=== PATIENT | female | born 1960 | race Caucasian/White ===

== ENCOUNTER 2022-04-06 16:28 | Emergency (ER) | payer OTHER ==
--- OUTSIDE RECORDS SUMMARY | 2022-04-06 16:33 | XMS REPORT | Continuity of Care Document ---
:1960 Author Organization [facility] t Address [address] [place] [address] Care Team Providers Name Role Phone JULI DURÁN Primary Care Physician Unavailable Juli Durán Attending Clinician Unavailable Dominique Kaur MD Attending Clinician DOMINIQUE KAUR Attending Clinician Unavailable DOMINIQUE KAUR Admitting Clinician Unavailable Payers Payer Name Policy Type Policy Number Effective Date Expiration Date S terry [place] [address] [id number] [facility] Spirit - C [facility] Problems Condition Condition Condition Status Onset Resolution Last Treating Co mments Source Name Details Category Date Date Treatment Clinician Date [id number] Liver cyst Problem Com mon [facility] [id number] Fatty Problem Common liver [facility] 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 [id number] Memory Problem Common loss [facility] [id number] Chills Problem Common Spirit - [facility] [id number] Weight Problem Common loss [facility] [id number] Gastroesop Problem Co mmon hageal Spirit reflux - [facility] disease [facility] esophagiti Medica l s without Center hemorrhage [id number] Iron Problem Common deficiency Spirit anemia - [facility]I secondary [facility] inadequate Medica l dietary Center iron intake [id number] Possible Problem Comm on exposure Spirit to STD - [facility] No known No known Disease Unive rs active active ity of problems problems [facility] Allergies, Adverse Reactions, Alerts Allergy Allergy Status Severity Reaction(s) Onset Inactive Treating Comm ents Source Name Type Date Date Clinician NO KNOWN Drug Active Univers ALLERGIE Class ity of S [facility] Social History Social Habit Start Date Stop Date Quantity Comments Source History of Common Spirit - Tobacco Use [facility] Sex Assigned At Common Sp sonny - [facility] History SDOH University o f Alcohol Frequency [place] [facility] History SDOH University o f Alcohol Std [place] [facility] History SDOH University o f Alcohol Binge [place] [facility] Exposure to Not sure University of SARS-CoV-2 [facility] (event) Branch Alcohol intake 2021-06-05 2021-06-05 Current drinker Unive rsity of 00:00:00 00:00:00 of alcohol [facility] (finding) Branch Tobacco use and 2017-03-25 2017-03-25 Never used Universit y of exposure 00:00:00 00:00:00 [facility] Alcohol Comment 2017-03-25 2017-03-25 Social Drinker Unive rsity of 00:00:00 00:00:00 [facility] Smoking Status Start Date Stop Date Source Never Smoker [facility] Medications Ordered Filled Start Stop Current Ordering Indication Dosage Frequency Signature Comments Components Source Medication Medication Date Date Medication? Clinician (SIG) Name Name Omeprazole Omeprazole No QD Omeprazole 40 MG 40 MG 3-31 40 MG 00:00: 00 Omeprazole Omeprazole No QD Omeprazole 40 MG 40 MG 3-31 40 MG 00:00: 00 Omeprazole Omeprazole 0 No QD Omeprazole 40 MG 40 MG 3-31 40 MG 00:00: 00 Omeprazole Omeprazole No QD Omeprazole 40 MG 40 MG 3-31 40 MG 00:00: 00 Omeprazole Omeprazole 0 No QD Omeprazole 40 MG 40 MG 3-31 40 MG 00:00: 00 Omeprazole Omeprazole 0 No QD Omeprazole 40 MG 40 MG 3-31 40 MG 00:00: 00 Omeprazole Omeprazole 0 No QD Omeprazole 40 MG 40 MG 3-31 40 MG 00:00: 00 aspirin Yes 81mg 81 mg, Univers chewable 2-23 Oral, ity of tablet 81 15:00: DAILY, [place] mg 00 First dose Medical on Fri Branch 06/06/21 at 0900, Until Discontinu ed, Routine NaCl 0.9% Yes 1000mL at 999 Univ ers (NS) IV 2-23 mL/hr, ity of infusion 05:30: Intravenou [place] as 1,000 mL 00 s, Medical CONTINUOUS Branch , Starting on Fri06/05/21 at 2330, Until Discontinu ed, Routine NaCl 0.9% Yes 1000mL at 999 Univ ers (NS) IV 2-23 mL/hr, ity of infusion 04:30: Intravenou [place] as 1,000 mL 00 s, Medical CONTINUOUS Branch , Starting on Fri06/05/21 at 2230, Until Discontinu ed, Routine iopamidol 2021- No [id number] 100mL 100 mL, Univers (ISOVUE - 02-23 Intravenou ity o f 370-500 mL) 02:30: 02:34 s, ONCE, 1 [place] injection 00 :00 dose, On Medica l 100 mL Fri Branch 06/05/21 at 2030, Routine NaCl 0.9% Yes 5mL 5 mL, Slow Un tod (NS) 2-23 IV Push, ity of injection 5 02:25: PRN - [place] mL 36 INSTRUCTIO Medical NS, Branch Starting on Fri06/05/21 at 2024, Until Discontinu ed, 10 mL Fluticasone Fluticasone Yes Juli 1 spray in Common Propionate Propionate 5-15 [place] each Sp sonny 00:00: nostril - [facility] 00 [facility] Fluticasone Fluticasone No 1{spray QD Fluticason Propionate Propionate 5-15 _in_eac e 50 MCG/ACT 50 MCG/ACT 00:00: h_nostr Propionate 00 il} 50 MCG/ACT Fluticasone Fluticasone 2019-0 No 1{spray QD Fluticason Propionate Propionate 5-15 _in_eac e 50 MCG/ACT 50 MCG/ACT 00:00: h_nostr Propionate 00 il} 50 MCG/ACT Fluticasone Fluticasone 2019-0 No 1{spray QD Fluticason Propionate Propionate 5-15 _in_eac e 50 MCG/ACT 50 MCG/ACT 00:00: h_nostr Propionate 00 il} 50 MCG/ACT Fluticasone Fluticasone 2019-0 No 1{spray QD Fluticason Propionate Propionate 5-15 _in_eac e 50 MCG/ACT 50 MCG/ACT 00:00: h_nostr Propionate 00 il} 50 MCG/ACT Fluticasone Fluticasone 2019-0 No 1{spray QD Fluticason Propionate Propionate 5-15 _in_eac e 50 MCG/ACT 50 MCG/ACT 00:00: h_nostr Propionate 00 il} 50 MCG/ACT Fluticasone Fluticasone 2019-0 No 1{spray QD Fluticason Propionate Propionate 5-15 _in_eac e 50 MCG/ACT 50 MCG/ACT 00:00: h_nostr Propionate 00 il} 50 MCG/ACT Fluticasone Fluticasone 2019-0 No 1{spray QD Fluticason Propionate Propionate 5-15 _in_eac e 50 MCG/ACT 50 MCG/ACT 00:00: h_nostr Propionate 00 il} 50 MCG/ACT Fluticasone Fluticasone 2019-0 No 1{spray QD Fluticason Propionate Propionate 5-15 _in_eac e 50 MCG/ACT 50 MCG/ACT 00:00: h_nostr Propionate 00 il} 50 MCG/ACT Fluticasone Fluticasone 2019-0 No 1{spray QD Fluticason Propionate Propionate 5-15 _in_eac e 50 MCG/ACT 50 MCG/ACT 00:00: h_nostr Propionate 00 il} 50 MCG/ACT Fluticasone Fluticasone 2019-0 No 1{spray QD Fluticason Propionate Propionate 5-15 _in_eac e 50 MCG/ACT 50 MCG/ACT 00:00: h_nostr Propionate 00 il} 50 MCG/ACT Fluticasone Fluticasone No 1{spray QD Fluticason Propionate Propionate 5-15 _in_eac e 50 MCG/ACT 50 MCG/ACT 00:00: h_nostr Propionate 00 il} 50 MCG/ACT Fluticasone Fluticasone No 1{spray QD Fluticason Propionate Propionate 5-15 _in_eac e 50 MCG/ACT 50 MCG/ACT 00:00: h_nostr Propionate 00 il} 50 MCG/ACT Aspirin Aspirin Yes Juli 1 tablet Co mmon Adult Low Adult Low 3-06 [place] Spir it Dose Dose 00:00: - [facility] 00 [facility] Aspirin Aspirin No 1{table QD Aspirin Adult Low Adult Low 3-06 t} Adult Low Dose 81 MG Dose 81 MG 00:00: Dose 81 MG 00 Aspirin Aspirin No 1{table QD Aspirin Adult Low Adult Low 3- t} Adult Low Dose 81 MG Dose 81 MG 00:00: Dose 81 MG 00 Aspirin Aspirin No 1{table QD Aspirin Adult Low Adult Low 3- t} Adult Low Dose 81 MG Dose 81 MG 00:00: Dose 81 MG 00 Aspirin Aspirin No 1{table QD Aspirin Adult Low Adult Low 3-06 t} Adult Low Dose 81 MG Dose 81 MG 00:00: Dose 81 MG 00 Aspirin Aspirin No 1{table QD Aspirin Adult Low Adult Low 3-06 t} Adult Low Dose 81 MG Dose 81 MG 00:00: Dose 81 MG 00 Aspirin Aspirin No 1{table QD Aspirin Adult Low Adult Low 3-06 t} Adult Low Dose 81 MG Dose 81 MG 00:00: Dose 81 MG 00 Aspirin Aspirin No 1{table QD Aspirin Adult Low Adult Low 3-06 t} Adult Low Dose 81 MG Dose 81 MG 00:00: Dose 81 MG 00 Aspirin Aspirin No 1{table QD Aspirin Adult Low Adult Low 3-06 t} Adult Low Dose 81 MG Dose 81 MG 00:00: Dose 81 MG 00 Aspirin Aspirin No 1{table QD Aspirin Adult Low Adult Low 3-06 t} Adult Low Dose 81 MG Dose 81 MG 00:00: Dose 81 MG 00 Aspirin Aspirin No 1{table QD Aspirin Adult Low Adult Low 3-06 t} Adult Low Dose 81 MG Dose 81 MG 00:00: Dose 81 MG 00 Aspirin Aspirin No 1{table QD Aspirin Adult Low Adult Low 3-06 t} Adult Low Dose 81 MG Dose 81 MG 00:00: Dose 81 MG 00 Aspirin Aspirin No 1{table QD Aspirin Adult Low Adult Low 3-06 t} Adult Low Dose 81 MG Dose 81 MG 00:00: Dose 81 MG 00 aspirin 81 2016-04 Yes 81mg Take 81 mg U nivers mg EC 2-13 by mouth ity of tablet 12:11: daily. [address] escitalopra 2016-04 Yes 10mg Take 10 mg Univers m oxalate 2-13 by mouth ity of 10 mg 12:11: daily. [address] Escitalopra Escitalopra Yes Juli TK 1 T PO Common m Oxalate m Oxalate [place] QD Spir it [facility] Lexapro Lexapro Yes Juli 1 tablet Comm on [place] [facility] Escitalopra Escitalopra No QD Escitalopr m Oxalate m Oxalate am Oxalate 10 MG 10 MG 10 MG Escitalopra Escitalopra No QD Escitalopr m Oxalate m Oxalate am Oxalate 10 MG 10 MG 10 MG Escitalopra Escitalopra No QD Escitalopr m Oxalate m Oxalate am Oxalate 10 MG 10 MG 10 MG Escitalopra Escitalopra No QD Escitalopr m Oxalate m Oxalate am Oxalate 10 MG 10 MG 10 MG Escitalopra Escitalopra No QD Escitalopr m Oxalate m Oxalate am Oxalate 10 MG 10 MG 10 MG Escitalopra Escitalopra No QD Escitalopr m Oxalate m Oxalate am Oxalate 10 MG 10 MG 10 MG Escitalopra Escitalopra No QD Escitalopr m Oxalate m Oxalate am Oxalate 10 MG 10 MG 10 MG Lexapro 10 Lexapro 10 No 1{table QD Lexapro 10 MG MG t} MG Escitalopra Escitalopra No QD Escitalopr m Oxalate m Oxalate am Oxalate 10 MG 10 MG 10 MG Lexapro 10 Lexapro 10 No 1{table QD Lexapro 10 MG MG t} MG Escitalopra Escitalopra No QD Escitalopr m Oxalate m Oxalate am Oxalate 10 MG 10 MG 10 MG Lexapro 10 Lexapro 10 No 1{table QD Lexapro 10 MG MG t} MG Escitalopra Escitalopra No QD Escitalopr m Oxalate m Oxalate am Oxalate 10 MG 10 MG 10 MG Lexapro 10 Lexapro 10 No 1{table QD Lexapro 10 MG MG t} MG Escitalopra Escitalopra No QD Escitalopr m Oxalate m Oxalate am Oxalate 10 MG 10 MG 10 MG Lexapro 10 Lexapro 10 No 1{table QD Lexapro 10 MG MG t} MG Escitalopra Escitalopra No QD Escitalopr m Oxalate m Oxalate am Oxalate 10 MG 10 MG 10 MG Immunizations Ordered Immunization Filled Immunization Date Status Commen ts Source Name Name Flucelvax - single Flucelvax - single 2019-03-16 Completed [facility] dose syringe dose syringe 08:25:00 - [facility] Flucelvax - single Flucelvax - single 2019-03-16 Completed [facility] dose syringe dose syringe 08:25:00 - [facility] Flucelvax - single Flucelvax - single 2019-03-16 Completed [facility] dose syringe dose syringe 08:25:00 - [facility] Flucelvax - single Flucelvax - single 2019-03-16 Completed [facility] dose syringe dose syringe 08:25:00 - [facility] Flucelvax - single Flucelvax - single 2019-03-16 Completed [facility] dose syringe dose syringe 08:25:00 - [facility] Flucelvax - single Flucelvax - single 2019-03-16 Completed [facility] dose syringe dose syringe 08:25:00 - [facility] Flucelvax - single Flucelvax - single 2019-03-16 Completed [facility] dose syringe dose syringe 08:25:00 - [facility] Flucelvax - single Flucelvax - single 2019-03-16 Completed [facility] dose syringe dose syringe 08:25:00 - [facility] Flucelvax - single Flucelvax - single 2019-03-16 Completed [facility] dose syringe dose syringe 08:25:00 - [facility] Flucelvax - single Flucelvax - single 2019-03-16 Completed [facility] dose syringe dose syringe 08:25:00 - [facility] Flucelvax - single Flucelvax - single 2019-03-16 Completed [facility] dose syringe dose syringe 08:25:00 - [facility] Flucelvax - single Flucelvax - single 2019-03-16 Completed [facility] dose syringe dose syringe 08:25:00 - [facility] Flucelvax - single Flucelvax - single 2019-03-16 Completed [facility] dose syringe dose syringe 00:00:00 - [facility] Vital Signs Vital Name Observation Time Observation Value Comments Source height 2022-01-25 13:00:00 64 [in_i] [facility] weight 2022-01-25 13:00:00 127.6 [lb_av] [facility] temperature 2022-01-25 13:00:00 97.6 [degF] [facility] bmi 2022-01-25 13:00:00 21.9 kg/m2 [facility] oximetry 2022-01-25 13:00:00 98 % [facility] respiratory rate 2022-01-25 13:00:00 16 /min Comm on [facility] blood pressure 2022-01-25 13:00:00 134 mm[Hg] [facility] - systolic [facility] blood pressure 2022-01-25 13:00:00 70 mm[Hg] [facility] - diastolic [facility] height 2022-01-08 13:00:00 64 [in_i] Common [facility] weight 2022-01-08 13:00:00 127.6 [lb_av] [facility] temperature 2022-01-08 13:00:00 97.2 [degF] [facility] bmi 2022-01-08 13:00:00 21.9 kg/m2 [facility] oximetry 2022-01-08 13:00:00 97 % [facility] respiratory rate 2022-01-08 13:00:00 16 /min Comm on [facility] blood pressure 2022-01-08 13:00:00 92 mm[Hg] Common [facility] - systolic [facility] blood pressure 2022-01-08 13:00:00 52 mm[Hg] Common [facility] - diastolic [facility] height 2021-07-12 11:40:00 64 [in_i] [facility] weight 2021-07-12 11:40:00 123.4 [lb_av] [facility] temperature 2021-07-12 11:40:00 98.1 [degF] [facility] bmi 2021-07-12 11:40:00 21.18 kg/m2 [facility] oximetry 2021-07-12 11:40:00 98 % [facility] respiratory rate 2021-07-12 11:40:00 16 /min Comm on [facility] blood pressure 2021-07-12 11:40:00 99 mm[Hg] Common [facility] - systolic [facility] blood pressure 2021-07-12 11:40:00 63 mm[Hg] [facility] diastolic [facility] Systolic blood 2021-06-06 06:40:00 124 mm[Hg] Univer sity of pressure [facility] Diastolic blood 2021-06-06 06:40:00 75 mm[Hg] Unive rsity of [facility] Heart rate 2021-06-06 06:40:00 66 /min [facility] Respiratory rate 2021-06-06 06:40:00 18 /min Univ [facility] Oxygen saturation in 2021-06-06 06:40:00 97 /min [facility] Arterial blood by [facility] Pulse oximetry Branch Body temperature 2021-06-06 02:03:00 [facility].89 [facility] height 2021-06-06 02:03:00 162.6 cm [facility] Body weight 2021-06-06 02:03:00 54.432 kg [facility] BMI 2021-06-06 02:03:00 20.60 kg/m2 [facility] height 2021-03-21 11:00:00 64 [in_i] [facility] weight 2021-03-21 11:00:00 130.6 [lb_av] [facility] temperature 2021-03-21 11:00:00 98.4 [degF] [facility] bmi 2021-03-21 11:00:00 22.41 kg/m2 [facility] oximetry 2021-03-21 11:00:00 98 % [facility] respiratory rate 2021-03-21 11:00:00 16 /min Comm on [facility] blood pressure 2021-03-21 11:00:00 105 mm[Hg] [facility] systolic [facility] blood pressure 2021-03-21 11:00:00 59 mm[Hg] [facility] diastolic [facility] Procedures Procedure Date / Time Performing Clinician Source Performed TROPONIN I 2021-06-06 04:54:[address] [facility] URINALYSIS 2021-06-06 03:22:[address] [facility] XR STROKE CHEST 1 VW 2021-06-06 03:01:08 Dominique Kaur [facility] CT STROKE ANGIOGRAM 2021-06-06 02:49:12 Dominique Kaur [facility] HEAD Medical Branch CT STROKE ANGIOGRAM 2021-06-06 02:49:12 Dominique Kaur [facility] NECK [facility] Branch POCT GLUCOSE 2021-06-06 02:47:00 Dominique Kaur [facility] (AUTOMATED) [facility] CT STROKE HEAD WO 2021-06-06 02:43:49 Dominique Kaur [facility] CONTRAST Medical Branch MAGNESIUM 2021-06-06 02:39:[address] [facility] TROPONIN I 2021-06-06 02:39:[address] [facility] THYROID STIMULATING 2021-06-06 02:39:00 Dominique Kaur [facility] HORMONE Medical Branch BASIC METABOLIC PANEL 2021-06-06 02:39:00 Dominique Kaur [facility] (NA, K, CL, CO2, Medical Branch GLUCOSE, BUN, CREATININE, CA) CBC WITHOUT DIFF 2021-06-06 02:39:[address] [facility] PROTHROMBIN TIME / INR 2021-06-06 02:39:00 Dominique Kuar [facility] ACTIVATED PARTIAL 2021-06-06 02:39:00 Dominique Kaur [facility] COVID-19 (ID NOW RAPID 2021-06-06 02:39:00 Dominique Kaur [facility] TESTING) Medical Branch NOTICE OF PRIVACY 2021-06-06 01:58:04 Doctor Unassigned, No [facility] PRACTICES Name [facility] Branch CONSENT/REFUSAL FOR 2021-06-06 01:57:52 Doctor Unassigned, No [facility] DIAGNOSIS AND TREATMENT Name [facility] Encounters Start End Encounter Admission Attending Care Care Encounter Source Date/Time Date/Time Type Type Clinicians Facility Department ID 2021-05-09 Outpatient [facility] [id number] Common 14:17:51 Juli [id number] [facility] 2022-02-19 2022-02-19 (TEL) [facility] [id number] Co mmon 00:00:00 00:00:00 [facility] 2022-01-28 2022-01-28 (TEL) [facility] [id number] Co mmon 00:00:00 00:00:00 [facility] 2022-01-25 2022-01-25 OFFICE [facility] [id number] Co mmon 00:00:00 00:00:00 VISIT [facility] LEVEL 1 [facility] 2022-01-08 2022-01-08 OFFICE STLMLC STLMLC [id number] Co mmon 00:00:00 00:00:00 VISIT EST Spir it PT LEVEL 3 - [facility] 2021-12-26 2021-12-26 (TEL) STLMLC STLMLC [id number] Co mmon 00:00:00 00:00:00 [facility] 2021-07-12 2021-07-12 OFFICE STLMLC STLMLC [id number] Co mmon 00:00:00 00:00:00 VISIT EST Spir it PT LEVEL 3 - [facility] 2021-07-02 2021-07-02 (TEL) STLMLC STLMLC [id number] Co mmon 00:00:00 00:00:00 [facility] 2021-06-05 2021-06-06 Emergency [facility] [id number] Univers 20:11:00 01:18:00 Dominique [id number] [facility] [id number] [place] [address] Branch 2021-06-05 2021-06-06 Emergency X [facility] ERT [id number] Univers 20:11:00 01:18:00 DOMINIQUE milton [facility] 2021-05-28 2021-05-28 (TEL) STLMLC STLMLC [id number] Co mmon 00:00:00 00:00:00 [facility] 2021-05-24 2021-05-24 (TEL) STLMLC STLMLC [id number] Co mmon 00:00:00 00:00:00 [facility] 2021-03-23 2021-03-23 (TEL) STLMLC STLMLC [id number] Co mmon 00:00:00 00:00:00 [facility] 2021-03-21 2021-03-21 PREV VISIT STLMLC STLMLC [id number] Common 00:00:00 00:00:00 EST AGE Spirit 40-[address] - [facility] 2021-01-01 2021-01-01 Outpatient STLMLC STLMLC [id number] Common 00:00:00 00:00:00 [facility] 2019-10-21 2019-10-21 [facility] [id number] Common 13:40:00 13:40:00 t [facility] Spir it Road [facility] 2019-10-21 2019-10-21 [facility] [id number] Common 13:00:00 13:00:00 t [facility] it [address] [facility] 2019-10-21 2019-10-21 [facility] [id number] Common 09:00:00 09:00:00 [facility] it [address] [facility] 2019-08-05 2019-08-05 [facility] [id number] Common 09:43:00 09:43:00 t Specialty/U Sp sonny Specialty rology - [facility] 2019-07-07 2019-07-07 [facility] [id number] Common 09:00:00 09:00:00 t Specialty/U Sp sonny Specialty rology - [facility] 2019-06-07 2019-06-07 [facility] [id number] Common 14:39:00 14:39:00 [facility] it [address] [facility] 2019-04-13 2019-04-13 [facility] [id number] Common 10:03:00 10:03:00 [facility] it [address] [facility] 2019-03-16 2019-03-16 [facility] [id number] Common 08:20:00 08:20:00 [facility] it [address] [facility] Results Test Description Test Time Test Comments Results Result Comments Source CULTURE, URINE 2022-01-28 00:00:00 Test Item Value Reference Range Interpretation Comme nts CULTURE, URINE (test code = 630-4) SPECIMEN NUMBER: [id number] TROPONIN [id number] 05:58:07 Test Item Value Reference Interpretation Comments Range TROPONIN I (test 0.003 ng/mL See_Comment [Automated code = [id number]) message] The system which generated this result transmitted reference range : <=0.034. The reference range was not used to interpret this result as normal/abnormal . EUNICE (test code = Reference (Normal) EUNICE) Range (defined by the 99th percentile reference limit): <= 0.034 ng/mL Note: Cardiac troponin begins to rise 3-4 hours after the onset of ischemia. Repeat in 4-6 hours if the sample was drawn within 3-4 hours of the onset of the symptom and found normal. Diagnosis of myocardial injury is made with acute changes in cTn concentrations with at least one serial sample above the 99th percentile upper reference limit (URL), taken together with the patient's clinical presentation. Biotin has been reported to cause a negative bias, interpret results relative to patient's use of biotin. Lab Interpretation Normal (test code = 01327-1) [facility] [id number] 04:28:16 Test Item Value Reference Range Interpretation Comments TSH (test code = See_Comment [Automated message] [id number]) The system [employer] generated this result transmitted ref erence range: 0.45 - 4 .70 mIU/L. The refe rence range was not u sed to interpret this result as normal/abnor mal. Lab Interpretation (test Normal code = 39834-3) [facility]2022-02-23 03:57:30 Test Item Value Reference Range Interpretation Comments MAGNESIUM (test code = 0002990545) 2.1 mg/dL 1.7-2.4 Lab Interpretation (test code = Normal 71807-8) [facility] - Code [id number] 03:09:45 Test Item Value Reference Interpretation Comments Range TROPONIN I (test 0.004 ng/mL See_Comment [Automated code = [id number]) message] The system which generated this result transmitted reference range : <=0.034. The reference range was not used to interpret this result as normal/abnormal . EUNICE (test code = Reference (Normal) EUNICE) Range (defined by the 99th percentile reference limit): <= 0.034 ng/mL Note: Cardiac troponin begins to rise 3-4 hours after the onset of ischemia. Repeat in 4-6 hours if the sample was drawn within 3-4 hours of the onset of the symptom and found normal. Diagnosis of myocardial injury is made with acute changes in cTn concentrations with at least one serial sample above the 99th percentile upper reference limit (URL), taken together with the patient's clinical presentation. Biotin has been reported to cause a negative bias, interpret results relative to patient's use of biotin. Lab Interpretation Normal (test code = 22976-7) [facility] Code [id number] 02:59:04 Test Item Value Reference Range Interpretation Comments APTT Patient (test See_Comment [Automat ed code = 3173-2) message] The system which generated this result transmitted reference range : 23 - 38 Seconds . The reference range was not used to interpr et this result as normal/abnormal . EUNICE (test code = EUNICE) The [facility] patient population mean normal value for aPTT is 30 seconds. Lab Interpretation Normal (test code = 37205-1) [facility] (NA, K, CL, CO2, Glucose, BUN, Creatinine, CA) - Code [id number] 02:58:03 Test Item Value Reference Range Interpretation Comments NA (test code = 138 mmol/L 135-145 2067749628) K (test code = 4.1 mmol/L 3.5-5.0 9959265650) CL (test code = 104 mmol/L 98-108 6064150978) CO2 TOTAL (test code 26 mmol/L 23-31 = 1168665338) AGAP (test code = 2-16 9049314110) BUN (test code = 16 mg/dL 7-23 5025203321) GLUCOSE (test code = 109 mg/dL 70-110 2576377927) CREATININE (test code 0.62 mg/dL 0.50-1.04 = 4125873565) CALCIUM (test code = 9.3 mg/dL 8.6-10.6 4123329732) eGFR (test code = mL/min/1.73m2 5102411006) EUNICE (test code = EUNICE) Association of Glomerular Filtration Rate (GFR) and Staging of Kidney Disease* + + +- +| GFR (mL/min/1.73 m2) ?| With Kidney Damage ?| ?Without Kidney Damage+ ------+ ----+ ------+| ?>90 ?| ?Stage one ?| ? Normal ?+ -+ + -+| ?60-89 ?| ?Stage two ?| ? Decreased GFR ? + + +- +| ?30-59 ?| ?Stage three ?| ? Stage three ? + + +- +| ?15-29 ?| ?Stage four ? | ? Stage four ?+ -+ + -+| ?<15 (or dialysis) ? ?| ?Stage five ? | ? Stage five ?+ -+ + -+ *Each stage assumes the associated GFR level has been in effect for at least three months. ?Stages 1 to 5, with or without kidney disease, indicate chronic kidney disease. Notes: Determination of stages one and two (with eGFR >59mL/min/1.73 m2) requires estimation of kidney damage for at least three months as defined by structural or functional abnormalities of the kidney, manifested by either:Pathological abnormalities or Markers of kidney damage (including abnormalities in the composition of the blood or urine or abnormalities in imaging tests). [facility]th[facility] Time / INR - Code [id number] 02:56:47 Test Item Value Reference Range Interpretation Comments PROTIME PATIENT (test See_Comment [Auto mated message] code = 5964-2) The system [employer] generated this result transmitted ref erence range: 12.0 - 1 4.7 Seconds. The re ference range was not u sed to interpret this result as normal/abnor mal. INR (test code = 6301-6) Nor mal INR <1.1; Warfarin Therap eutic range 2.0 to 3. 0 or 2.5 to 3.5, dep ending upon the indica tions. Lab Interpretation (test Normal code = 22390-4) [facility]PO[facility] GLUCOSE (AUTOMATED)2021-06-06 02:52:29 Test Item Value Reference Range Interpretation Comments POCT GLU (test code = 2979194680) 106 mg/dL 70-110 Lab Interpretation (test code = Normal 99072-2) [facility] without Diff - Code [id number] 02:51:13 Test Item Value Reference Range Interpretation Comments WBC (test code = See_Comment [Automated message] The 6690-2) system which nerated this result tra nsmitted reference range : 4.30 - 11.10 10*3/?L. The reference range was not used to interpr et this result as normal/abnormal . RBC (test code = See_Comment [Automated message] The 789-8) system which nerated this result tra nsmitted reference range : 3.93 - 5.25 10*6/?L. T he reference range was not used to interpr et this result as normal/abnormal . HGB (test code = 13.6 g/dL 11.6-15.0 718-7) HCT (test code = 41.2 % 35.7-45.2 4544-3) MCH (test code = 29.6 pg 25.9-32.8 785-6) MCV (test code = 89.8 fL 80.6-95.5 787-2) MCHC (test code = 33.0 g/dL 31.6-35.1 786-4) PLT (test code = See_Comment [Automated message] The 777-3) system which nerated this result tra nsmitted reference range : 166 - 358 10*3/?L. Th e reference range was not used to interpr et this result as normal/abnormal . MPV (test code = 10.1 fL 9.5-12.9 27779-0) RDW-CV (test code = 12.7 % 12.0-15.5 788-0) RDW-SD (test code = 41.6 fL 39.0-49.9 39271-9) NRBC x10^3 (test <0.01 See_Comment [Automated message] The code = 2703674399) system [facility] generated this result tra nsmitted reference range : 10*3/?L. The reference r rogerio was not used to int erpret this result as normal/abnormal . NRBC/100 WBC (test See_Comment [Automat ed message] The code = 8960471823) system [facility] generated this result tra nsmitted reference range : 0.0 - 10.0 /100 WBCs. The reference range was not used to interpr et this result as normal/abnormal . IPF % (test code = 7648848576) [facility]"
--- NOTE | 2022-04-06 17:23 | EDPHYS ---
Physician Documentation [facility] Name: Nicolasa Merlos Age: 62 yrs Sex: Female : 1960 Arrival Date: 04/06/2022 Time: 16:31 Bed 5 Private MD: Brit Pritchard ED Physician Jasmine Butler HPI: 04/06 16:40 This 62 yrs old Female presents to ER via Ambulatory with complaints of Leg Swelling, jmm Feet Swelling. 16:40 The patient presents with swelling. The complaints affect the. Onset: The jmm symptoms/episode began/occurred gradually, 1 day(s) ago. Is a 62-year-old female status post breast augmentation removal presents emerged department with complaints of lower extremity swelling. Patient denies any chest pain or shortness of breath. Was advised by her surgeon to go to the ED for further evaluation.. Historical: - Allergies: 16:44 No Known Allergies; ph - Home Meds: 16:44 None [Active]; ph - PSHx: 16:44 section; hysterectomy; breast augmentation; ph - Immunization history:: Adult Immunizations unknown. - Social history:: Smoking status: Patient denies any tobacco usage or history of. ROS: 16:40 Constitutional: Negative for fever, chills, and weight loss, Cardiovascular: Negative jmm for chest pain, palpitations, and edema, Respiratory: Negative for shortness of breath, cough, wheezing, and pleuritic chest pain. 16:40 MS/extremity: Positive for swelling. 16:40 All other systems are negative. Exam: 16:40 Constitutional: This is a well developed, well nourished patient who is awake, alert, jmm and in no acute distress. Head/Face: atraumatic. Eyes: EOMI, no conjunctival erythema appreciated ENT: Moist Mucus Membranes Neck: Trachea midline, Supple Chest/axilla: Normal chest wall appearance and motion. Cardiovascular: Regular rate and rhythm. No edema appreciated Respiratory: Normal respirations, no respiratory distress appreciated Abdomen/GI: Non distended Back: Normal ROM Skin: General appearance color normal 16:40 Musculoskeletal/extremity: ROM: intact in all extremities, Mild edema noted to the lower extremities bilaterally, full dorsalis pedis pulse bilaterally, compartments are soft, neurovascular intact. 16:40 Skin: Appearance: Color: normal in color. 16:40 Neuro: Orientation: is normal, Mentation: is normal, Memory: is normal. 16:40 Psych: Behavior/mood is pleasant, cooperative. Vital Signs: 16:42 BP 150 / 80; Pulse 84; Resp 18; Temp 97.6; Pulse Ox 100% on R/A; Weight 56.7 kg; Height ph 5 ft. 4 in. (162.56 cm); 17:34 BP 120 / 72; Pulse 78; Resp 18; Temp 97.1; Pulse Ox 100% on R/A; ph 16:42 Body Mass Index 21.46 (56.70 kg, 162.56 cm) ph MDM: 16:40 Patient medically screened. [facility] 17:22 Data reviewed: vital signs, nurses notes. Counseling: I had a detailed discussion with tierra the patient and/or guardian regarding: the historical points, exam findings, and any diagnostic results supporting the discharge/admit diagnosis, the need for outpatient follow up, to return to the emergency department if symptoms worsen or persist or if there are any questions or concerns that arise at home. 04/06 16:43 Order name: US Extremity Venous W Compression Jeffrey [facility] Administered Medications: No medications were administered Disposition: 18:54 STAFF ATTESTATION STATEMENT: I was immediately available onsite in the emergency sd2 department for consultation in the care of this patient. I did not see or examine this patient. Jasmine Butler MD. Disposition Summary: 04/06/22 17:23 Discharge Ordered Location: Home [facility] Condition: Stable [facility] Diagnosis - Peripheral Edema [facility] Followup: [facility] - With: Private Physician - When: 2 - 3 days - Reason: Recheck today's complaints, Continuance of care, Re-evaluation by your physician Discharge Instructions: - Discharge Summary Sheet [facility] - Peripheral Edema [facility] Forms: - Medication Reconciliation Form [facility] - Thank You Letter jm - Antibiotic Education [facility] - Prescription Opioid Use [facility] Signatures: Dispatcher [employer] EDMS Tito Sharif PA PA jmm Hall, Patricia, RN RN Jasmine Buckner MD MD sd2 Corrections: (The following items were deleted from the chart) 16:47 16:44 PMHx: ; ph ph
--- NOTE | 2022-04-06 17:23 | ER ---
Nurse's Notes [facility] Name: Nicolasa Merlos Age: 62 yrs Sex: Female : 1960 Arrival Date: 04/06/2022 Time: 16:31 Bed 5 Private MD: Brit Pritchard Diagnosis: Peripheral Edema Presentation: 04/06 16:42 Chief complaint: Patient states: " I had my implants removed on the . I had a post ph op appointment yesterday and everything was fine then today I noted that my R leg was swollen and it looks like my L ankle is swollen too.". Coronavirus screen: Vaccine status: Patient reports receiving the 2nd dose of the covid vaccine. Ebola Screen: No symptoms or risks identified at this time. Initial Sepsis Screen: Does the patient meet any 2 criteria? No. Patient's initial sepsis screen is negative. Does the patient have a suspected source of infection? No. Patient's initial sepsis screen is negative. Risk Assessment: Do you want to hurt yourself or someone else? Patient reports no desire to harm self or others. Onset of symptoms was April 06, 2022. 16:42 Method Of Arrival: Ambulatory ph 16:42 Acuity: TACO 3 ph Historical: - Allergies: 16:44 No Known Allergies; ph - Home Meds: 16:44 None [Active]; ph - PSHx: 16:44 section; hysterectomy; breast augmentation; ph - Immunization history:: Adult Immunizations unknown. - Social history:: Smoking status: Patient denies any tobacco usage or history of. Screenin:24 [facility] ED Fall Risk Assessment (Adult) History of falling in the last 3 months, ph including since admission No falls in past 3 months (0 pts) Confusion or Disorientation No (0 pts) Intoxicated or Sedated No (0 pts) Impaired Gait No (0 pts) Mobility Assist Device Used No (0 pt) Altered Elimination No (0 pt) Score/Fall Risk Level 0 - 2 = Low Risk Oriented to surroundings, Maintained a safe environment. Abuse screen: Denies threats or abuse. Denies injuries from another. Nutritional screening: No deficits noted. Tuberculosis screening: No symptoms or risk factors identified. Assessment: 17:25 General: Appears in no apparent distress. comfortable, well groomed, Behavior is calm, ph cooperative, appropriate for age. Pain: Denies pain. Neuro: Level of Consciousness is awake, alert, obeys commands, Oriented to person, place, time, situation. Cardiovascular: Capillary refill < 3 seconds in bilateral fingers Patient's skin is warm and dry. Edema is 1+ to right knee, right midcalf, right ankle and right foot. Cardiovascular: Edema is 1+ to left foot. Respiratory: Airway is patent Respiratory effort is even, unlabored, Denies shortness of breath. Derm: Skin is healthy with good turgor, Skin is pink, warm \\T\\ dry. Vital Signs: 16:42 BP 150 / 80; Pulse 84; Resp 18; Temp 97.6; Pulse Ox 100% on R/A; Weight 56.7 kg; Height ph 5 ft. 4 in. (162.56 cm); 17:34 BP 120 / 72; Pulse 78; Resp 18; Temp 97.1; Pulse Ox 100% on R/A; ph 16:42 Body Mass Index 21.46 (56.70 kg, 162.56 cm) ph ED Course: 16:31 Patient arrived in ED. mr 16:31 Brit Pritchard is Private Physician. mr 16:34 Ttio Sharif PA is PHCP. [facility] 16:34 Jasmine Butler MD is Attending Physician. david 16:44 Triage completed. ph 16:45 Inga Stanton, RN is Primary Nurse. kb3 16:47 Arm band placed on Patient placed in an exam room. ph 17:26 Patient has correct armband on for positive identification. Placed in gown. Bed in low ph position. Call light in reach. Side rails up X2. Pulse ox on. NIBP on. 17:26 No provider procedures requiring assistance completed. Patient did not have IV access ph during this emergency room visit. 17:28 US Extremity Venous W Compression Jeffrey In Process Unspecified. EDMS Administered Medications: No medications were administered Medication: 17:26 VIS not applicable for this client. ph Outcome: 17:23 Discharge ordered by . jmm 17:34 Discharged to home ambulatory. ph 17:34 Condition: good 17:34 Discharge instructions given to patient, Instructed on discharge instructions, follow up and referral plans. Demonstrated understanding of instructions, follow-up care. 17:34 Patient left the ED. ph Signatures: Dispatcher [employer] EDMS Kole Tito, PA PA jmm Painter, Aura mr Natalie River, RN RN ph Inga Stanton RN RN kb3 Corrections: (The following items were deleted from the chart) 16:47 16:44 PMHx: ; ph ph
--- NOTE | 2022-04-06 17:33 | RAD REPORT ---
EXAM DESCRIPTION: US - Extrem Venous W Compress Jeffrey - 04/06/2022 5:27 pm CLINICAL HISTORY: SWELLING Bilateral leg edema and swelling. COMPARISON: EXT VENOUS UNI LTD dated 02/13/2014 TECHNIQUE: Real-time sonographic interrogation of the left and right lower extremity deep venous sys tems was performed. FINDINGS: Normal compressibility, flow augmentation, phasic flow and spontaneous flow is identified in both the left and right lower extremity deep venous systems. IMPRESSION: No sonographic evidence of left or right lower extremity deep venous thrombosis.
[2022-04-06 17:39] VITALS: O2SAT 100
[2022-04-06 17:41] VITALS: BP 120/72; TEMP 97.1
== END 2022-04-06 17:34 | disposition home or self-care (01) ==
LOC: ER 16:28
DX: R60.9 Edema, unspecified (principal); Z98.890 Other specified postprocedural states; Z98.82 Breast implant status
CPT/HCPCS: 93970